=== PATIENT | male | born 1945 | race Caucasian/White ===

== ENCOUNTER 2025-06-30 11:32 | Day surgery (SDC) | payer MEDICARE, BC ==
[~2025-06-30] VITALS: Ht 165.1 cm; Wt 63.1 kg
[2025-06-30] VITALS (11 sets, daily range): BP systolic 83–120; BP diastolic 60–82; PULSE 65–72; RESP 13–18; TEMP 98.1; O2SAT 90–98
[~2025-06-30 11:32] MED LIST: AMLO10TA13 PO; BENA20TA82 PO; BUSP15TA3 PO; GABA-530 PO; MELO-102 PO; METO-395 PO; TAMSULOSIN
--- NOTE | 2025-06-30 12:22 | ELECTROCARDIOGRAPH REPORT ---
[facility] Test Date: 2025-06-30 Test Time: 12:20:53 Pat Name: MERARY HIDALGO Department: [facility] Patient ID: [facility]-[id number] Room: Gender: M Legal Document Assistant: : 1945 Requested By: CARRIE RICARDO Order Number: [id number] Reading MD: Dr. JANETH Hodges Measurements Intervals [place] Rate: 68 P: 70 UT: 166 QRS: 1 QRSD: 117 T: 63 QT: 423 QTc: 450 Interpretive Statements Sinus rhythm Ventricular premature complex Nonspecific intraventricular conduction delay Minimal ST elevation, anterior leads Electronically Signed On 06-30-2025 12:40:[address] JANETH Hodges Please click the below link to view image of tracing.
[2025-06-30] MEDS ORDERED: midazolam 1 mg/ML 2ml injection ONE (13:43)
[2025-06-30] MEDS ORDERED: fentaNYL/PF 50MCG/1 ML 2ML syringe ONE (13:43)
[2025-06-30] MEDS ORDERED: LIDOcaine 1% (10mg/ml) 2ml vial ONE (13:43)
[2025-06-30] MEDS ORDERED: verapamil 2.5 mg/ml inj IV ONE (13:43)
[2025-06-30] MEDS ORDERED: heparin 1,000unit/ml 10ml vial 10 ML ONE (13:44)
[2025-06-30] MEDS ORDERED: nitroGLYCERIN 500mcg/5mL D5W 5 ML IV ONE (13:48)
[2025-06-30] MEDS ORDERED: atropine 0.1mg/ml 10ml syringe ONE (14:32)
[2025-06-30] MEDS ORDERED: phenylephrine 10mg/ml inj. ONE (14:33)
[2025-06-30] MEDS ORDERED: epiNEPHrine 0.1mg/ml 10ml syringe ONE (14:38)
[2025-06-30] MEDS ORDERED: DOPamine 400mg/D5W 250ml 250 ML IV ONE (14:39)
[2025-06-30] MEDS ORDERED: ondansetron/PF 4mg/2ml inj ONE (14:45)
[2025-06-30] MEDS ORDERED: OXAZEpam 15mg capsule PO PRN (15:55)
[2025-06-30] MEDS ORDERED: ondansetron/PF 4mg/2ml inj IV PRN (15:55)
[2025-06-30] MEDS ORDERED: HYDROcodone/acetaminophen 5mg/325mg tablet PO PRN (15:55)
[2025-06-30] MEDS ORDERED: HYDROcodone/acetaminophen 10/325mg tab PO PRN (15:55)
--- NOTE | 2025-07-16 20:03 | CARDIOLOGY REPORT ---
DATE OF SERVICE: 06/30/2025 DICTATING PHYSICIAN: Berenice Mulligan MD CARDIAC CATHETERIZATION REPORT DATE OF PROCEDURE: 06/30/2025 PROCEDURES: * Access to the right radial artery. * Access to the right brachial vein. * Selective coronary angiography. * Critical care time for 45 minutes. INDICATION: Aortic stenosis. PHYSICIAN: Berenice Mulligan MD DESCRIPTION OF PROCEDURE: After informed consent was obtained, the patient was brought to the lab where he was prepped and draped in the usual sterile fashion. After adequate anesthesia was obtained using 1% lidocaine to the right radial artery, a 6-Danish sheath was inserted into the right radial artery. 2 mL of lidocaine was also given to the right brachial region, and a 6-Danish sheath inserted into the right brachial vein. Thereafter, using a Guillermo-Adams catheter, the catheter was advanced. However, close to the axillary vein, difficulty was encountered in advancing the catheter. Angiography revealed the Guillermo-Adams in a possible branch. The Guillermo-Adams was then removed. As we were advancing the TIG catheter over a 0.035 wire, the patient was noted to become significantly hypotensive and bradycardic. He was given a total of 600 mg of Alfonso-Synephrine with no significant improvement in his blood pressure. He also required atropine for his bradycardia and one dose of epinephrine. Dopamine was started, and the patient's blood pressure and heart rate gradually improved. When the patient was noted to be steady, angiography was then performed. HEMODYNAMICS: Please refer to the event log. FINDINGS: All of the patient's coronary arteries are medium caliber vessels with mild luminal irregularities and no significant obstructive disease. IMPRESSION: * Mild luminal irregularities with no significant coronary artery disease by angiography. * Prior to angiography, the patient became significantly hypotensive and bradycardic, requiring atropine, Alfonso-Synephrine, and dopamine as described above. Etiology unclear. Most likely secondary to the cocktail given to the patient. He improved, and dopamine was weaned off. Angiography performed after the patient was stable. Berenice Mulligan MD TID: [id number] RECEIPT: [id number] /[id number]
== END 2025-06-30 18:30 | disposition home or self-care (01) ==
LOC: SSTAY O 11:32
PROVIDERS: ATTEND Student in an Organized Health Care Education/Training Program
DX: I35.0 Nonrheumatic aortic (valve) stenosis (principal); I45.4 Nonspecific intraventricular block; I49.3 Ventricular premature depolarization; I10 Essential (primary) hypertension; Z88.5 Allergy status to narcotic agent; Z85.828 Personal history of other malignant neoplasm of skin; Z98.52 Vasectomy status
CPT/HCPCS: 93005; 93454; 99152; 99153; A4615; A6258; A6402; C1751; C1894; J0461; J1265; J1644; J2003; J2250; J2371; J2405; J3010; J3490; J7030; Q0163; Q9967; Z7610; A6449; J0169